=== PATIENT | male | born 1990 | race Caucasian/White ===

== ENCOUNTER 2016-11-16 00:54 | Emergency (ER) | payer OTHER ==
[~2016-11-16 00:54] MED LIST: CLARITIN10 MG; NO MEDICATIONS
== END 2016-11-16 03:50 | disposition home or self-care (01) ==
LOC: CED 00:54
DX: K04.7 Periapical abscess without sinus (principal); K02.9 Dental caries, unspecified; F17.210 Nicotine dependence, cigarettes, uncomplicated
CPT/HCPCS: 99283

== ENCOUNTER 2016-12-29 00:31 | Emergency (ER) | payer OTHER ==
[~2016-12-29] VITALS: Ht 170.2 cm; Wt 77.1 kg
== END 2016-12-29 01:25 | disposition home or self-care (01) ==
LOC: CED 00:31
DX: J32.9 Chronic sinusitis, unspecified (principal); K60.2 Anal fissure, unspecified; K59.00 Constipation, unspecified; F20.9 Schizophrenia, unspecified
CPT/HCPCS: 99283